=== PATIENT | female | born 1945 | race Caucasian/White ===

== ENCOUNTER → 2016-08-09 | Day surgery (SDC) | payer MEDICARE, OTHER ==
[~2016-08-09] VITALS: Ht 149.9 cm; Wt 57.6 kg
[~2016-08-09] MED LIST: ACETAMINOPHEN 325 MG TAB PO PRN; ACETAMINOPHEN TAB 650MG DOSE (2X325MG) PO PRN; ACETYLCHOLINE OPHTH SOLN 1% 2ML As Ordered ONE; AcetaZOLAMIDE 500 MG ER CAP PO ONE; BALANCED SALT IRRIGATION SOLUTION 500ML BAG (FOR OR EYE MACHINE) As Ordered ONE; CEFUROXIME 1MG/0.1ML INTRACAMERAL INJ As Ordered ONE; CYCLOPENTOLATE 2% OPHTH SOLN As Ordered ONE; CYCLOPENTOLATE 2% OPHTH SOLN OS ONE; D5W/0.2% SODIUM CHLORIDE 1,000 ML IV SCH; D5W/0.45% SODIUM CHLORIDE 1,000 ML IV SCH; GLIP2.5T6 PO; HEALON DUET (HEALON 10MG/ML 0.55ML & HEALON ENDOCOAT 30MG/ML 0.85ML) As Ordered ONE; KETOROLAC 0.5% OPHTH SOLN OS ONE; LIDOCAINE 1% SDV 5 ML VIAL As Ordered ONE; LIDOCAINE 4% INJ 5 ML AMP OU ONE; METF500T PO; MIDAZOLAM INJ 2 MG/2 ML VIAL (J2250) As Ordered ONE; OFLOXACIN 0.3 % (OCUFLOX) OPTH SOL 5ML As Ordered ONE; OFLOXACIN 0.3 % (OCUFLOX) OPTH SOL 5ML OS ONE; ONDANSETRON 4MG/2ML VIAL (J2405) IV PRN; PHENYLEPHRINE 2.5% OPHTH SOL 2ML As Ordered ONE; PHENYLEPHRINE 2.5% OPHTH SOL 2ML OS ONE; POVIDONE-IODINE 5% OPHTH PREP SOL 30ML As Ordered ONE; PROPARACAINE 0.5% OPHTH SOL 15ML OS PRN; TRIMETHOBENZAMIDE 300 MG CAP PO PRN; TROPICAMIDE 1% OPHTH SOLN 2 ML As Ordered ONE; TROPICAMIDE 1% OPHTH SOLN 2 ML OS ONE; fentaNYL 100 MCG/2 ML INJECTION (J3010) As Ordered ONE
[2016-08-09 09:00] VITALS: BP 181/75
--- NOTE | 2016-08-09 21:57 | RO ---
DATE OF PROCEDURE: 07/12/2016 PREPROCEDURE DIAGNOSIS: Nuclear cataract left eye. POSTPROCEDURE DIAGNOSIS: Nuclear cataract left eye. PROCEDURE: Phacoemulsification and posterior chamber intraocular lens implantation. The lens used was AU00T0 21.0 diopter. SURGEON: Kenisha Gaspar MD PORTAL ARCHITECT: ANESTHESIA: Topical with sedation. DESCRIPTION OF PROCEDURE: The patient was prepped and draped in the usual fashion. A lid speculum was placed between the lids. The eye was fixated. A stab incision was made to the anterior chamber, and 1% non-preserved lidocaine was instilled. Then, viscoelastic was instilled. The eye was re-fixated. A 2.75 mm sapphire keratome was used to make a clear corneal temporal limbal incision. Capsulorrhexis was begun with a 30-gauge bent needle and then carried out in a circular fashion with capsulorrhexis forceps. The lens was hydrodissected, and then the phacoemulsification unit was used to make a groove in the nucleus in two meridians. The nucleus was then cracked into four quadrants. Each quadrant was removed with the phacoemulsification unit. Any remaining cortex was removed with the irrigation and aspiration (I and A) unit. Capsular bag was refilled with viscoelastic. A posterior chamber intraocular lens was placed in the capsular bag without difficulty. Any remaining viscoelastic was removed with the I and A unit. The wound was hydrated, and Miochol and cefuroxime were instilled into the anterior chamber. The patient tolerated the procedure well and went to the recovery room in stable condition.
== END | disposition home or self-care (01) ==
LOC: M SDC 06:06
PROVIDERS: ATTEND Ophthalmology
DX: H25.12 Age-related nuclear cataract, left eye (principal); E11.9 Type 2 diabetes mellitus without complications; M19.90 Unspecified osteoarthritis, unspecified site; Z79.899 Other long term (current) drug therapy; Z79.84 Long term (current) use of oral hypoglycemic drugs
CPT/HCPCS: 66984; J2250; J3010; V2632

== ENCOUNTER → 2016-08-16 | Day surgery (SDC) | payer MEDICARE, OTHER ==
[~2016-08-16] VITALS: Ht 149.9 cm; Wt 58.0 kg
[~2016-08-16] MED LIST changes: -ACETAMINOPHEN TAB 650MG DOSE (2X325MG) PO PRN; -CYCLOPENTOLATE 2% OPHTH SOLN As Ordered ONE; +CYCLOPENTOLATE 2% OPHTH SOLN OD ONE; -CYCLOPENTOLATE 2% OPHTH SOLN OS ONE; -D5W/0.2% SODIUM CHLORIDE 1,000 ML IV SCH; +D5W/0.2% SODIUM CHLORIDE 250 ML IV SCH; -D5W/0.45% SODIUM CHLORIDE 1,000 ML IV SCH; +KETOROLAC 0.5% OPHTH SOLN OD ONE; -KETOROLAC 0.5% OPHTH SOLN OS ONE; -OFLOXACIN 0.3 % (OCUFLOX) OPTH SOL 5ML As Ordered ONE; +OFLOXACIN 0.3 % (OCUFLOX) OPTH SOL 5ML OD ONE; -OFLOXACIN 0.3 % (OCUFLOX) OPTH SOL 5ML OS ONE; -ONDANSETRON 4MG/2ML VIAL (J2405) IV PRN; -PHENYLEPHRINE 2.5% OPHTH SOL 2ML As Ordered ONE; +PHENYLEPHRINE 2.5% OPHTH SOL 2ML OD ONE; -PHENYLEPHRINE 2.5% OPHTH SOL 2ML OS ONE; +PROPARACAINE 0.5% OPHTH SOL 15ML OD PRN; -PROPARACAINE 0.5% OPHTH SOL 15ML OS PRN; -TROPICAMIDE 1% OPHTH SOLN 2 ML As Ordered ONE; +TROPICAMIDE 1% OPHTH SOLN 2 ML OD ONE; -TROPICAMIDE 1% OPHTH SOLN 2 ML OS ONE
[2016-08-16 08:40] VITALS: BP 171/82
--- NOTE | 2016-08-16 09:37 | RO ---
DATE OF PROCEDURE: 08/16/2016 PREPROCEDURE DIAGNOSIS: Age related nuclear cataract right eye. POSTPROCEDURE DIAGNOSIS: Age related nuclear cataract right eye. PROCEDURE: Phacoemulsification and posterior chamber intraocular lens implantation. The lens used was AU00T0, 21.0 diopter. SURGEON: Kenisha Gaspar MD ORDER SELECTOR: ANESTHESIA: Topical with sedation. DESCRIPTION OF PROCEDURE: The patient was prepped and draped in the usual fashion. A lid speculum was placed between the lids. The eye was fixated. A stab incision was made to the anterior chamber, and 1% non-preserved lidocaine was instilled. Then, viscoelastic was instilled. The eye was re-fixated. A 2.75 mm sapphire keratome was used to make a clear corneal temporal limbal incision. Capsulorrhexis was begun with a 30-gauge bent needle and then carried out in a circular fashion with capsulorrhexis forceps. The lens was hydrodissected, and then the phacoemulsification unit was used to make a groove in the nucleus in two meridians. The nucleus was then cracked into four quadrants. Each quadrant was removed with the phacoemulsification unit. Any remaining cortex was removed with the irrigation and aspiration (I and A) unit. Capsular bag was refilled with viscoelastic. A posterior chamber intraocular lens was placed in the capsular bag without difficulty. Any remaining viscoelastic was removed with the I and A unit. The wound was hydrated, and Miochol and cefuroxime were instilled into the anterior chamber. The patient tolerated the procedure well and went to the recovery room in stable condition.
== END | disposition home or self-care (01) ==
LOC: M SDC 06:08 → EDUNIT# 11:00
PROVIDERS: ATTEND Ophthalmology
DX: H25.11 Age-related nuclear cataract, right eye (principal); E11.9 Type 2 diabetes mellitus without complications; M54.9 Dorsalgia, unspecified; Z79.899 Other long term (current) drug therapy; Z79.84 Long term (current) use of oral hypoglycemic drugs
CPT/HCPCS: 66984; J2250; J3010; V2632

== ENCOUNTER 2019-12-06 14:39 | Inpatient (IN) | payer MEDICARE, OTHER ==
[~2019-12-06] VITALS: Ht 149.9 cm; Wt 65.1 kg
[~2019-12-06 14:39] MED LIST changes: -ACETAMINOPHEN 325 MG TAB PO PRN; -ACETYLCHOLINE OPHTH SOLN 1% 2ML As Ordered ONE; -AcetaZOLAMIDE 500 MG ER CAP PO ONE; -BALANCED SALT IRRIGATION SOLUTION 500ML BAG (FOR OR EYE MACHINE) As Ordered ONE; -CEFUROXIME 1MG/0.1ML INTRACAMERAL INJ As Ordered ONE; -CYCLOPENTOLATE 2% OPHTH SOLN OD ONE; -D5W/0.2% SODIUM CHLORIDE 250 ML IV SCH; -HEALON DUET (HEALON 10MG/ML 0.55ML & HEALON ENDOCOAT 30MG/ML 0.85ML) As Ordered ONE; -KETOROLAC 0.5% OPHTH SOLN OD ONE; -LIDOCAINE 1% SDV 5 ML VIAL As Ordered ONE; -LIDOCAINE 4% INJ 5 ML AMP OU ONE; -METF500T PO; +METF500T13 PO; -MIDAZOLAM INJ 2 MG/2 ML VIAL (J2250) As Ordered ONE; -OFLOXACIN 0.3 % (OCUFLOX) OPTH SOL 5ML OD ONE; -PHENYLEPHRINE 2.5% OPHTH SOL 2ML OD ONE; -POVIDONE-IODINE 5% OPHTH PREP SOL 30ML As Ordered ONE; -PROPARACAINE 0.5% OPHTH SOL 15ML OD PRN; -TRIMETHOBENZAMIDE 300 MG CAP PO PRN; -TROPICAMIDE 1% OPHTH SOLN 2 ML OD ONE; -fentaNYL 100 MCG/2 ML INJECTION (J3010) As Ordered ONE
[2019-12-06 15:45] VITALS: BP 140/68
[2019-12-06] MEDS ORDERED: GLUCOSE 4GM CHEW TABLET PO PRN (15:45)
[2019-12-06] MEDS ORDERED: DEXTROSE 50% 50 ML SYRINGE IV PRN (15:45)
[2019-12-06] MEDS ORDERED: GLUCAGON INJ 1MG VIAL SC PRN (15:45)
[2019-12-06] MEDS ORDERED: SLF 3 ML SYR IV PRN (16:00)
[2019-12-06] MEDS ORDERED: KCL 10MEQ IN D5/0.45NS 1000ML 1,000 ML IV SCH (16:15)
[2019-12-06] MEDS ORDERED: ZOFR4TAB16 PO (16:24)
[2019-12-06] MEDS ORDERED: LANTINJ4 SC (16:24)
[2019-12-06] MEDS ORDERED: D 50CAP2 PO (16:25)
[2019-12-06 16:41] LABS: HEMOGLOBIN 12.1 g/dl (12.0-15.5); MEAN CORPUSCULAR HEMOGLOBIN 27.9 pg (27.0-33.0); MEAN CORPUSCULAR VOLUME 89.9 fl (80.0-96.0); PLATELET COUNT, AUTOMATED 613 10^3/uL (150-450); RED BLOOD COUNT 4.34 10^6/uL (4.00-5.40); WHITE BLOOD COUNT 18.6 10^3/uL (4.0-10.0)
[2019-12-06 17:15] LABS: ALBUMIN 2.5 GM/DL (3.2-5.2); BILIRUBIN,TOTAL 0.6 MG/DL (0.2-1.0); CALCIUM LEVEL 8.9 MG/DL (8.8-10.2); CREATININE FOR GFR 1.29 MG/DL (0.55-1.30); GLOMERULAR FILTRATION RATE 42.8 (>39); POTASSIUM SERUM 5.8 MEQ/L (3.5-5.1); TOTAL PROTEIN 6.4 GM/DL (6.4-8.2)
--- NOTE | 2019-12-06 17:15 | HPE ---
DATE OF ADMISSION: 12/06/2019 CHIEF COMPLAINT: Nausea, vomiting, diarrhea, abdominal distension. HISTORY OF PRESENT ILLNESS: A 74-year-old female with history of diabetes, osteoarthritis, was in her usual state of health until about a month ago when she was started on Trulicity by her primary care provider. The patient started developing increasing pain in her stomach, described as sharp, worse when she tries to eat something, and had taken herself off of the Trulicity to see if that would make any difference. The patient continues to have increasing abdominal pain diffusely without any relief, constant with a six-pound weight loss. She has had decrease in appetite, anorexia, and increasing abdominal distension without lower extremity edema. She went to the emergency room at the [facility] last Sunday and was diagnosed with ovarian cancer on CT abdomen and pelvis and was sent to [facility] at the [facility]. The patient stayed at [facility] from Sunday to Sunday afternoon. She was told that the biopsy needed to be done as outpatient and she was subsequently discharged. She says that she felt better after IV fluids were started and she was put on antiemetics but since returning home without any IV fluid, she had intractable nausea, vomiting, and diarrhea. She describes the diarrhea as yellow dark stool, voluminous in amount, about 3-4 times during the day and three times at night. Vomiting usually occurs when she attempts to eat something and initially frothy and eventually turns into yellowish emesis. Despite the six-pound weight loss, the patient has not had any other complaints. She has been unable to sleep, has been increasingly tired. Today, she has had worsening abdominal pain, intractable nausea, vomiting and diarrhea prompting her to come to the emergency room at [facility]. She was told have an interventional radiology (IR) procedure scheduled for Sunday for biopsy, and since this was her second time over in the [facility] Emergency Department (ED), she was subsequently transferred to [facility] to expedite her biopsy. PAST MEDICAL HISTORY: 1. Diabetes. 2. Osteoarthritis. 3. Recent diagnosis of ovarian cancer by imaging at [facility] and seen at [facility]. PAST SURGICAL HISTORY: Tubal ligation, cholecystectomy. HOME MEDICATIONS: - Lantus insulin 8 units at bedtime - Zofran 4 mg every six hours as needed - vitamin D 125 mcg daily ALLERGIES: No known drug allergies. SOCIAL HISTORY: The patient never smoked cigarettes. She still works cleaning churches. She lives with her and her son. She has an occasional glass of wine with a friend. Healthcare proxy is her . She is a full code. 's name is Donavon, phone number [phone]. FAMILY HISTORY: Her father in his 40s with heart problems. Mother in her 80s at the age of 82 with heart problems. She was a heavy smoker. REVIEW OF SYSTEMS: Per history of present illness (HPI), 12-point system otherwise negative. PHYSICAL EXAMINATION: VITALS: 97.5 97 18 140/68 98%RA GENERAL: Awake, alert, and oriented times three, answering questions appropriately. Anicteric. No jaundice. No pallor. Dry mucous membranes. No jugular venous distention (JVD), thyromegaly, or cervical lymphadenopathy. Lungs are clear to auscultation. No wheezing, rales, or rhonchi. Air entry is equal bilaterally. HEART: S1, S2, sinus rhythm. Abdomen is distended. Positive bowel sounds times four quadrants. The patient has positive fluid wave. No rebound or guarding. No abdominal bruit. EXTREMITIES: No clubbing, cyanosis, or pitting edema. Laboratory data:pending Transvaginal US: 1. Bilateral adnexal masses, likely ovarian in origin. 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 2. Fluid within the endometrial cavity of the uterus which has a slightly heterogeneous myometrium. 3. Pelvic ascites. CT ABD/PELVIS 1. Large heterogeneously enhancing pelvic mass suspicious for ovarian origin and highly concerning for ovarian cancer. 2. Cystic mass within the left adnexa, likely left ovarian origin. 3. Peritoneal carcinomatosis with extensive omental caking. 4. Large volume of abdominal and pelvic ascites. ASSESSMENT AND PLAN: This is a 74-year-old female with history of type 2 diabetes, osteoarthritis, presented a month ago to [facility] due to increasing abdominal distension, found to have questionable ovarian mass, sent over to [facility] where she stayed for three days with no workup. She was then sent to have an outpatient biopsy done at [facility] scheduled for this coming Sunday12/09/2019. She then represented to the emergency room after hospital discharge over at [facility] with intractable nausea, vomiting and diarrhea, increasing abdominal pain, transferred subsequently from [facility] Emergency Room (ER) to [facility] to expedite her diagnosis. IMPRESSION: 1. Pelvic mass with malignant ascites, most likely ovarian in origin.The patient was seen at [facility] in [place] but was told that her biopsy had to be done as outpatient. This will be done at [facility] on Sunday. We will try to expedite this and order this for Sunday. At this time since we have no imaging studies, her CT abdomen and pelvis will be done here at [facility]. We will also check for tumor markers, CA 125, CA 19-9, CEA. At this time, the patient is nauseous and will be given antiemetics [id number] with Zofran IV every six hours, Phenergan if the Zofran is inadequate, and IV fluids D5 half-normal with 10 mEq of potassium at 75 mL per hour. us guided paracentesis for cytology. call radiology to reschedule her biopsy from Sunday to Sunday. 2. Type 2 diabetes. She may be resumed on home dose of Lantus insulin, sliding scale, and consistent-carbohydrate diet. Hypoglycemic protocol. 3. Hyperkalemia. on iv bicarb gtt.serial bmp. tele. 4. Metabolic acidosis / lactic acidosis. on iv bicarb gtt. serial bmp. check serial calcium while on bicarbonate iv gtt 5. Leukocytosis most likely reactive from malignancy. monitor for fever. no empiric abx. check ua with reflex gram stain and culture.blood culture. 6. DM2. consistent carbs diet, sliding scale. Deep vein thrombosis (DVT) prophylaxis with compression stockings for now. She is a full code. MTDD
[2019-12-06] MEDS: HumaLOG INSULIN (NovoLOG) PER UNIT SC SCH ×2 (17:16→20:34)
[2019-12-06] MEDS: ONDANSETRON 4MG/2ML VIAL IV SCH ×2 (17:39→23:26)
[2019-12-06] MEDS ORDERED: MORPHINE 4 MG/ML 1ML VIAL/SYRINGE (J2270) IV PRN (17:45)
[2019-12-06] MEDS ORDERED: SENOKOT S TAB PO PRN (17:45)
[2019-12-06] MEDS ORDERED: PERCOCET 5MG/325MG TAB PO PRN (17:45)
[2019-12-06] MEDS ORDERED: MOM 30ML SUSPENSION UDC PO PRN (17:45)
[2019-12-06] MEDS ORDERED: ISOVUE-370 76% 100ML VIAL As Ordered ONE (18:03)
[2019-12-06 18:25] LABS: MAGNESIUM LEVEL 1.9 MG/DL (1.8-2.4)
[2019-12-06] MEDS: SODIUM BICARBONATE 150 MEQ in STERILE WATER LITER BAG 1,000 ML IV SCH (18:37)
--- NOTE | 2019-12-06 19:02 | REPVR ---
PROCEDURE INFORMATION: Exam: CT Abdomen And Pelvis With Contrast Exam date and time: 12/06/2019 4:05 PM Age: 74 years old Clinical indication: Bloating; Additional info: Iv contrast no po contrast. Abd distension. Ovarian CA? TECHNIQUE: Imaging protocol: Computed tomography of the abdomen and pelvis with intravenous contrast. Radiation optimization: All CT scans at this facility use at least one of these dose optimization techniques: automated exposure control; mA and/or kV adjustment per patient size (includes targeted exams where dose is matched to clinical indication); or iterative reconstruction. Contrast material: ISOVUE 370; Contrast volume: 100 ml; Contrast route: INTRAVENOUS (IV); COMPARISON: CT ABD/PELVIS W/O CONTRAST - OUTSIDE PRIOR 11/30/2019 12:37 PM FINDINGS: Lungs: Atelectasis within the lingula and left lower lobe is new. Pleural space: Small left pleural effusion is new. Liver: Unremarkable. No mass. Gallbladder and bile ducts: Status post cholecystectomy. No bile duct dilatation. Pancreas: Atrophied pancreas containing coarse calcifications consistent with chronic pancreatitis, unchanged. Spleen: Calcified granulomas within the spleen. Adrenals: Normal. No mass. Kidneys and ureters: Unremarkable. No stones. No hydronephrosis. Stomach and bowel: Small gastric hiatus hernia. Diverticulosis of the descending and sigmoid colon. No diverticulitis. No bowel obstruction. Appendix: No evidence of appendicitis. Intraperitoneal space: Heterogeneously enhancing mixed density mass measuring approximately 11 cm x 8 cm x 9 cm within the right lower pelvis. This mass abuts and distorts the uterus which is heterogeneous in appearance. There is a left adnexal cystic mass measuring 6 cm by 4 cm by 5 cm. These findings are unchanged when compared to the prior exam. Large volume of abdominal and pelvic ascites, unchanged. Omental caking. Enhancing peritoneal implants more prominent in the upper abdomen. Vasculature: Unremarkable. No abdominal aortic aneurysm. Lymph nodes: Unremarkable. No enlarged lymph nodes. Bladder: Unremarkable as visualized. Reproductive: See "Intraperitoneal space" finding. Bones/joints: Degenerative spondylosis of the lower thoracic and lumbar spine. Degenerative arthrosis of both hip joints. No fracture or suspicious bone lesion. Soft tissues: Small anterior abdominal wall hernias, unchanged. IMPRESSION: 1. Large heterogeneously enhancing pelvic mass suspicious for ovarian origin and highly concerning for ovarian cancer. 2. Cystic mass within the left adnexa, likely left ovarian origin. 3. Peritoneal carcinomatosis with extensive omental caking. 4. Large volume of abdominal and pelvic ascites. Electronically signed by: Cb Downey On 12/06/2019 19:02:26 PM
[2019-12-06 20:00] VITALS: BP 155/77
[2019-12-06] MEDS: LEVEMIR (INSULIN DETEMIR) 1 UNITS/0.01ML SC SCH (20:34)
[2019-12-06] MEDS: SLF 3 ML SYR IV SCH (20:34)
--- NOTE | 2019-12-06 20:45 | REPVR ---
PROCEDURE INFORMATION: Exam: US Pelvis Complete, Transabdominal and US Pelvis, Transvaginal Exam date and time: 12/06/2019 8:29 PM Age: 74 years old Clinical indication: Abnormal findings; Abnormal imaging test; Additional info: Uterine mass TECHNIQUE: Imaging protocol: Real-time transabdominal and transvaginal pelvic ultrasound (complete) with image documentation. Transvaginal imaging was used for better evaluation of the endometrium and adnexa. COMPARISON: CT ABD PELVIS WITH CONTRAST 12/06/2019 6:10 PM FINDINGS: Uterus/cervix: The uterus measures 7.6 cm x 4.3 cm by 3.5 cm. There is fluid within the endometrial canal. The myometrium is slightly heterogeneous and abuts the right adnexal mass. Right adnexa: Solid heterogeneous mass of mixed echogenicity measuring 9.0 cm x 6.5 cm by 9.7 cm within the right lower quadrant/right adnexa, likely ovarian origin. Left adnexa: There is a complex cystic mass measuring 9.3 cm by 5.1 cm x 6.1 cm in the left adnexa, likely ovarian origin. Free fluid: Pelvic ascites is noted. Bladder: Incompletely distended and suboptimally visualized.. IMPRESSION: 1. Bilateral adnexal masses, likely ovarian in origin. 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 2. Fluid within the endometrial cavity of the uterus which has a slightly heterogeneous myometrium. 3. Pelvic ascites. Electronically signed by: Cb Downey On 12/06/2019 20:44:47 PM
[2019-12-07] VITALS: BP 124/60
[2019-12-07 00:51] LABS: CALCIUM LEVEL 8.2 MG/DL (8.8-10.2); CREATININE FOR GFR 1.2 MG/DL (0.55-1.30); GLOMERULAR FILTRATION RATE 46.5 (>39); POTASSIUM SERUM 5.2 MEQ/L (3.5-5.1)
[2019-12-07 04:00] VITALS: BP 99/58
[2019-12-07] MEDS: ONDANSETRON 4MG/2ML VIAL IV SCH ×4 (04:21→23:25)
[2019-12-07] MEDS: SLF 3 ML SYR IV SCH ×3 (05:38→22:05)
[2019-12-07 06:05] LABS: HEMOGLOBIN 10.6 g/dl (12.0-15.5); MEAN CORPUSCULAR HEMOGLOBIN 28.3 pg (27.0-33.0); MEAN CORPUSCULAR HGB CONC 32.1 g/dl (32.0-36.5); PLATELET COUNT, AUTOMATED 544 10^3/uL (150-450); RED BLOOD COUNT 3.75 10^6/uL (4.00-5.40); WHITE BLOOD COUNT 16.1 10^3/uL (4.0-10.0)
[2019-12-07 06:09] LABS: INR 1.3; PROTHROMBIN TIME 15.9 SECONDS (11.8-14.0)
[2019-12-07 06:10] LABS: PARTIAL THROMBOPLASTIN TIME 43.9 SECONDS (25.0-38.4)
[2019-12-07] MEDS: SODIUM BICARBONATE 150 MEQ in STERILE WATER LITER BAG 1,000 ML IV SCH (06:41)
[2019-12-07 06:42] LABS: CREATININE FOR GFR 1.17 MG/DL (0.55-1.30); GLOMERULAR FILTRATION RATE 47.9 (>39); POTASSIUM SERUM 5.1 MEQ/L (3.5-5.1); THYROID STIMULATING HORMONE 2.05 uIU/ML (0.358-3.740)
[2019-12-07] MEDS: HumaLOG INSULIN (NovoLOG) PER UNIT SC SCH ×4 (06:59→20:12)
[2019-12-07 08:00] VITALS: BP 136/71
[2019-12-07 08:47] LABS: HEMOGLOBIN A1c 7.8 %
[2019-12-07] MEDS: NS 1,000 ML IV SCH ×2 (09:00→20:35)
[2019-12-07] MEDS ORDERED: PREVNAR 13 VACCINE SYRINGE (CPT CODE:90670) IM ONE (09:00)
--- NOTE | 2019-12-07 10:51 | REP ---
CHEST PA AND LATERAL: 12/06/2019 COMPARISON: Abdomen CT showing lower chest, 11/30/2019 at [facility]. CLINICAL HISTORY: Abdominal pain, nausea and vomiting. FINDINGS: PA chest: Appears to be a small left pleural effusion developing. Right lung remains clear. I see no dense consolidation. The heart is not grossly enlarged. The aorta and airway intact. No widening of the mediastinum. Bony thorax shows no focal lesion. There is no free air under the diaphragm. IMPRESSION: 1. Small left pleural effusion evident, which is not seen on the CT abdomen lung windows from 11/30/2019. That CT study, however, shows ascites. 2. No dense consolidation in the lung parenchyma. The heart and mediastinal contours are normal. Bony thorax unremarkable. Electronically Signed by Petey Jacobs MD 12/07/2019 06:38 P
--- NOTE | 2019-12-07 11:32 | IPNPDOC ---
Text Note Date of Service The patient was seen on 12/07/19. NOTE Subjective: She states she is feeling better today. Denies chest pain/shortness of breath. No abdominal pain. No nausea. Would like to start clears. PHYSICAL EXAMINATION: GENERAL: Awake, alert, and oriented times three Anicteric. No jaundice. No pallor. Dry mucous membranes. No jugular venous distention (JVD). Lungs are clear to auscultation. No wheezing, rales, or rhonchi. Air entry is equal bilaterally. HEART: S1, S2, sinus rhythm. Abdomen is distended. Positive bowel sounds times four quadrants. The patient has positive fluid wave. No rebound or guarding. No abdominal bruit. EXTREMITIES: No clubbing, cyanosis, or pitting edema. Laboratory data:pending Transvaginal US: 1. Bilateral adnexal masses, likely ovarian in origin. 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 2. Fluid within the endometrial cavity of the uterus which has a slightly heterogeneous myometrium. 3. Pelvic ascites. CT ABD/PELVIS 1. Large heterogeneously enhancing pelvic mass suspicious for ovarian origin and highly concerning for ovarian cancer. 2. Cystic mass within the left adnexa, likely left ovarian origin. 3. Peritoneal carcinomatosis with extensive omental caking. 4. Large volume of abdominal and pelvic ascites. ASSESSMENT AND PLAN: This is a 74-year-old female with history of type 2 diabetes, osteoarthritis, presented a month ago to [facility] due to increasing abdominal distension, found to have questionable ovarian mass, sent over to [facility] where she stayed for three days with no workup. She was then sent to have an outpatient biopsy done at [facility] scheduled for this coming Sunday12/09/2019. She then represented to the emergency room after hospital discharge over at [facility] with intractable nausea, vomiting and diarrhea, increasing abdominal pain, transferred subsequently from [facility] Emergency Room (ER) to [facility] to expedite her diagnosis. IMPRESSION: 1. Pelvic mass with malignant ascites, most likely ovarian in origin.The vasu ceron seen at [facility] in [place] but was told that her biopsy had to be done as outpatient. This was planned be done at [facility] on [address]. - Please call IR in the morning to try to expedite it for tomorrow. - -Follow-up CA 125, CA 19-9, CEA. - Oncology consult after pathology results. 2.Nausea/vomiting - Resolved - DC IV fluids - Advance diet as tolerated 3. Type 2 diabetes. She may be resumed on home dose of Lantus insulin, sliding scale, and consistent-carbohydrate diet. Hypoglycemic protocol. 4. Hyperkalemia. - Status post iv bicarb gtt - Improved 5. Metabolic acidosis / lactic acidosis. on iv bicarb gtt. serial bmp. - Improved - DC bicarbonate drip 6. Leukocytosis most likely reactive from malignancy. monitor for fever. no empiric abx. check ua with reflex gram stain and culture.blood culture. 7. DM2. consistent carbs diet, sliding scale. Deep vein thrombosis (DVT) prophylaxis with compression stockings for now. VS,Fishbone, I+O VS, Fishbone, I+O Laboratory Tests 12/06/19 16:20 12/07/19 00:07 12/07/19 05:45 Vital Signs Date Time Temp Pulse Resp B/P (MAP) Pulse Ox O2 Delivery O2 Flow Rate FiO2 12/07/19 08:00 97.6 85 18 136/71 (92) 100 Room Air I&O- Last 24 Hours up to 6 AM 12/07/19 06:00 Intake Total 0 ml Output Total 400 ml Balance -400 ml NEETA KARIMI MD Dec 07, 2019 11:32
[2019-12-07 12:00] VITALS: BP 117/62
[2019-12-07 16:00] VITALS: BP 142/78
[2019-12-07 20:00] VITALS: BP 118/66
[2019-12-07] MEDS ORDERED: LEVEMIR (INSULIN DETEMIR) 1 UNITS/0.01ML SC ONE (20:30)
[2019-12-08 04:00] VITALS: BP 139/76
[2019-12-08] MEDS: SLF 3 ML SYR IV SCH ×3 (04:52→22:09)
[2019-12-08] MEDS: ONDANSETRON 4MG/2ML VIAL IV SCH ×4 (04:52→22:42)
[2019-12-08 05:51] LABS: HEMOGLOBIN 10.7 g/dl (12.0-15.5); MEAN CORPUSCULAR HGB CONC 31.5 g/dl (32.0-36.5); PLATELET COUNT, AUTOMATED 519 10^3/uL (150-450); RED BLOOD COUNT 3.82 10^6/uL (4.00-5.40); WHITE BLOOD COUNT 13.3 10^3/uL (4.0-10.0)
[2019-12-08 06:08] LABS: CREATININE FOR GFR 1.04 MG/DL (0.55-1.30); GLOMERULAR FILTRATION RATE 54.8 (>39); POTASSIUM SERUM 4.4 MEQ/L (3.5-5.1)
[2019-12-08] MEDS: HumaLOG INSULIN (NovoLOG) PER UNIT SC SCH ×4 (07:30→21:00)
[2019-12-08 08:00] VITALS: BP 132/61
[2019-12-08] MEDS ORDERED: MOM30SS2 PO (12:26)
[2019-12-08] MEDS ORDERED: SENN-52 PO (12:26)
[2019-12-08] MEDS ORDERED: PERCOCET PO (12:26)
[2019-12-08] MEDS ORDERED: SODIUM BICARBONATE 8.4% INJ 50MEQ 50 ML VIAL As Ordered ONE (14:53)
[2019-12-08 16:11] LABS: APPEARANCE, BODY FLUID CLOUDY (CLEAR); PERITONEAL FL COLOR YELLOW (COLORLESS); SOURCE, BODY FLUID PERITONEAL; SPEC. GRAVITY BODY FLUIDS 1.026 (NOT ESTABLISHED)
[2019-12-08 16:30] VITALS: BP 154/73
[2019-12-08] MEDS ORDERED: ISOVUE-370 76% 100ML VIAL As Ordered ONE (16:42)
[2019-12-08 17:10] LABS: SOURCE, BODY FLUID ALBUMIN PERITONEAL; SOURCE, BODY FLUID GLUCOSE PERITONEAL; SOURCE, BODY FLUID TOT PROTEIN PERITONEAL; TOTAL PROTEIN, BODY FLUID 4.3 G/DL (NOT ESTABLISHED)
--- NOTE | 2019-12-08 17:21 | IPNPDOC ---
Text Note Date of Service The patient was seen on 12/08/19. NOTE Subjective: No any acute events overnight. Patient stated that she has been h aving only mild nausea, no abdominal pain PHYSICAL EXAMINATION: GENERAL: Awake, alert, and oriented times three Anicteric. No jaundice. No pallor. Dry mucous membranes. No jugular venous distention (JVD). Lungs are clear to auscultation. No wheezing, rales, or rhonchi. Air entry is equal bilaterally. HEART: S1, S2, sinus rhythm. Abdomen is distended. Positive bowel sounds times four quadrants. The patient has positive fluid wave. No rebound or guarding. No abdominal bruit. EXTREMITIES: No clubbing, cyanosis, or pitting edema. ASSESSMENT AND PLAN: This is a 74-year-old female with history of type 2 diabetes, osteoarthritis, presented to the hospital with increasing abdominal distension. Patient was found to have Large heterogeneously enhancing pelvic mass suspicious for ovarian origin and highly concerning for ovarian cancer with Peritoneal carcinomatosis with extensive omental caking 1. Pelvic mass with malignant ascites, most likely ovarian in origin Paracentesis was done today CA 125, CA 19-9, CEA pending Appreciate/agree with oncologist consult CT chest with contrast ordered Nausea/vomiting - Resolved Zofran when necessary Type 2 diabetes. Diabetes diet, insulin sliding scale Detemir Hyperkalemia. Resolved Metabolic acidosis / lactic acidosis Patient received bicarbonate infusion Resolved Leukocytosis Await peritoneal fluid analysis Leukocytosis improved today. Most likely associated with underlying malignancy I will hold antibiotics for now. Patient does not have abdominal pain, no fever, no chills VS,Sridevie, I+O VS, Fishbone, I+O Laboratory Tests 12/08/19 05:16 Vital Signs Date Time Temp Pulse Resp B/P (MAP) Pulse Ox O2 Delivery O2 Flow Rate FiO2 12/08/19 15:42 83 16 99 Room Air 12/08/19 14:50 97.1 12/08/19 08:00 132/61 (84) I&O- Last 24 Hours up to 6 AM 12/08/19 05:59 Intake Total 0 ml Output Total 200 ml Balance -200 ml CAITLIN PHILLIPS DO Dec 08, 2019 17:21
--- NOTE | 2019-12-08 18:26 | REPVR ---
PROCEDURE INFORMATION: Exam: CT Chest With Contrast Exam date and time: 12/08/2019 5:33 PM Age: 74 years old Clinical indication: Condition or disease; Other: Mets TECHNIQUE: Imaging protocol: Computed tomography of the chest with intravenous contrast. 3D rendering: MIP and/or 3D reconstructed images were created by the technologist. Radiation optimization: All CT scans at this facility use at least one of these dose optimization techniques: automated exposure control; mA and/or kV adjustment per patient size (includes targeted exams where dose is matched to clinical indication); or iterative reconstruction. Contrast material: ISOVUE 370; Contrast volume: 75 ml; Contrast route: INTRAVENOUS (IV); COMPARISON: CR Chest, 2 view PA, Lat 12/06/2019 4:27 PM FINDINGS: Lungs: Compressive atelectasis left lung base. 2 mm nodule left lower lobe, 1-2 mm nodule right upper lobe both likely postinflammatory. No follow-up suggested (lung rads category 2). Pleural space: Small left pleural effusion. Heart: There is mild atherosclerotic calcification of the coronary arteries. Mediastinal space: A small hiatal hernia is present. Aorta: The aorta demonstrates mild atherosclerotic calcification. There is mild fusiform dilatation of the ascending thoracic aorta which measures 3.6 cm. maximally. There is no dissection or saccular component. Lymph nodes: Small mediastinal lymph nodes likely postinflammatory. Liver: Examination of the liver demonstrates a lobular surface contour, and enlargement of the left and caudate lobes, findings consistent with cirrhosis. There is a diffuse decrease in hepatic parenchymal density, consistent with steatosis. Gallbladder and bile ducts: There has been a cholecystectomy. Pancreas: There is diffuse pancreatic atrophy. Intraperitoneal space: There is a small amount of free intraperitoneal fluid present. Bones/joints: The spine demonstrates mild degenerative changes. Soft tissues: Unremarkable. IMPRESSION: 1. Small left pleural effusion. 2. There is mild fusiform dilatation of the ascending thoracic aorta which measures 3.6 cm. maximally. There is no dissection or saccular component. 3. There is a small amount of free intraperitoneal fluid present. 4. Examination of the liver demonstrates a lobular surface contour, and enlargement of the left and caudate lobes, findings consistent with cirrhosis. 5. A small hiatal hernia is present. 6. There is a diffuse decrease in hepatic parenchymal density, consistent with steatosis. 7. There has been a cholecystectomy. 8. There is diffuse pancreatic atrophy. Electronically signed by: Wild Jessica On 12/08/2019 18:26:36 PM
[2019-12-08 20:00] VITALS: BP 125/60
[2019-12-08] MEDS: LEVEMIR (INSULIN DETEMIR) 1 UNITS/0.01ML SC SCH (21:00)
[2019-12-09 04:00] VITALS: BP 121/67
[2019-12-09] MEDS: ONDANSETRON 4MG/2ML VIAL IV SCH ×2 (04:20→11:44)
[2019-12-09] MEDS: SLF 3 ML SYR IV SCH ×2 (04:20→13:30)
[2019-12-09 06:17] LABS: HEMATOCRIT 34.7 % (36.0-47.0); MEAN CORPUSCULAR HEMOGLOBIN 28.3 pg (27.0-33.0); MEAN CORPUSCULAR HGB CONC 31.7 g/dl (32.0-36.5); MEAN CORPUSCULAR VOLUME 89.2 fl (80.0-96.0); PLATELET COUNT, AUTOMATED 497 10^3/uL (150-450); RED BLOOD COUNT 3.89 10^6/uL (4.00-5.40)
[2019-12-09 06:33] LABS: BLOOD UREA NITROGEN 22 MG/DL (7-18); CALCIUM LEVEL 8.2 MG/DL (8.8-10.2); CARBON DIOXIDE LEVEL 23 MEQ/L (21-32); CHLORIDE LEVEL 106 MEQ/L (98-107); CREATININE FOR GFR 0.95 MG/DL (0.55-1.30); GLOMERULAR FILTRATION RATE > 60.0 (>39); GLUCOSE, FASTING 110 MG/DL (70-100); POTASSIUM SERUM 4.9 MEQ/L (3.5-5.1); SODIUM LEVEL 141 MEQ/L (136-145)
[2019-12-09 08:00] VITALS: BP 117/57
--- NOTE | 2019-12-09 08:07 | CR ---
DATE OF CONSULTATION: 12/08/2019 REQUESTING PHYSICIAN: Dr. Tate Verdugo DIAGNOSIS: Clinical diagnosis of advanced ovarian carcinoma in a 74-year-old woman presenting with massive ascites, omental caking, status post paracentesis, fluid cytology pending. HISTORY OF PRESENT ILLNESS: Ms. 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 She is and lives with her and one son. She has a total of five children. She has type 2 diabetes and was recently started on Trulicity. In the last month or so she developed abdominal discomfort and nausea she attributed to the Trulicity. However, ten days ago symptoms worsened, accompanied by abdominal distension, and she presented to the [facility] ER. There, she was diagnosed on CT scan with ovarian cancer and sent to [facility]. She was told a biopsy was needed as an outpatient and was discharged after IV fluids and antiemetics. Two days ago on Sunday, she presented with recurrent abdominal distention and lower extremity edema. She presented again to the [place] ER December 05, and from there was transferred to [facility] to expedite biopsy. PAST MEDICAL HISTORY: 1. Type 2 diabetes. 2. Osteoarthritis. PAST SURGICAL HISTORY: 1. Tubal ligation. 2. Cholecystectomy. ALLERGIES: No known drug allergies. HOME MEDICATIONS: - Lantus insulin 8 units at night - Zofran 4 mg q.6 h p.r.n. - vitamin D FAMILY HISTORY: A brother was diagnosed with prostate cancer in his mid 60s, a second brother diagnosed with liver cancer in his 40s. Mother of old age, father of coronary disease. SOCIAL HISTORY: . Lives with her and son. Never smoker. Denies alcohol. 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 is [place] . REVIEW OF SYSTEMS: The patient denies fevers, chills, shortness of breath, cough; despite the HPI, she denied leg swelling; acknowledges abdominal discomfort much relieved now after recent paracentesis here. No arm swelling. No neck swelling or facial swelling. No headache or visual disturbance. No lumps or bumps. No skin rash. PHYSICAL EXAMINATION: Temperature 97.1, blood pressure 132/61, heart rate 83, respiratory rate 16, O2 sat 99% on room air. The patient is a very pleasant, normal weight appearing, older woman reclining in bed, makes good eye contact, good historian, appears comfortable. Respiratory: Clear lungs throughout the lung monroy. No wheezes, rales or rhonchi. Cardiac: S1, S2. Regular rate and rhythm. No murmur. No gallop. Abdomen is soft, mildly softly distended, some shifting dullness just barely appreciable to percussion, nontender. No palpable hepatosplenomegaly. No palpable mass. Extremities: No pitting. Trace pedal edema bilaterally. Lymph Nodes: No palpable submandibular, cervical, supraclavicular or axillary adenopathy bilaterally. LABS: From today, WBC 13.3, hemoglobin 10.7, hematocrit 34, platelets 517. Electrolytes and renal function are within normal limits. TSH normal on 12/07/2019. CA-125 reportedly pending, but I do not see it pending here. IMAGING STUDIES: Pelvic ultrasound on 12/06/2019 - Uterus measuring 7.6 x 4.3 x 3.5. Fluid within the endometrial canal. Myometrium slightly heterogeneous and abutting a right adnexal mass measuring 9 x 6.5 x 9.7 cm. In the left adnexa, complex cystic mass measuring 9.3 x 5.1 x 6.1 cm. Pelvic ascites noted. Abdomen and pelvis CT on 12/06/2019 with contrast - Shows a large heterogeneous enhancing pelvic mass in the right lower pelvis abutting and distorting the uterus which is heterogeneous. A large adnexal left cystic mass, smaller, 6 cm x 4 x 5, unchanged versus 11/30/2019. Omental caking. Enhancing peritoneal implants prominent in the upper abdomen. No enlarged lymph nodes. IMPRESSION: 74-year-old woman, baseline ECOG performance status 0, with a few medical problems, admitted with bilateral large adnexal masses, peritoneal implants and omental caking highly suspicious for primary peritoneal versus ovarian versus fallopian tube carcinoma, locally advanced. No respiratory symptoms. Status post paracentesis with fluid cytology pending. No CA-125 available at present. PLAN: 1. Chest CT to complete staging 2. Rapid outpatient evaluation at [facility]. I've messaged our center administrator to expedite this. I discussed with Heather the likely diagnosis of gynecologic cancer, likely ovarian, possibly fallopian tube or primary peritoneal. I explained it is advanced, more staging required, but will be very treatable, often with up-front chemotherapy followed by debulking surgery followed by additional chemotherapy. She is otherwise well enough to go home. 2. I cautioned Heather there is high likelihood of recurrence of her abdominal ascites which may again require drainage. She had an opportunity to ask questions. She said she did not have any additional ones. She reports a good support system at home between her son and and will be able to travel [id number] between [place] and [place]. Thank you for this consult. cc: Rocio Luz MD
[2019-12-09] MEDS: HumaLOG INSULIN (NovoLOG) PER UNIT SC SCH ×2 (08:36→12:00)
--- NOTE | 2019-12-09 12:34 | REP ---
Ultrasound-guided paracentesis The procedure was performed by CORDELIA Bertrand, under the direct supervision of Dr. Carmona. The risks and benefits of the procedure were explained to the patient and informed consent was obtained both verbally and written. Directly prior to the start of the procedure, a formal timeout was completed in the procedure room. Under ultrasound guidance, the largest pocket of fluid in the right flank was localized and skin was marked. The skin was then prepped and draped in a sterile fashion. 11 ml of buffered lidocaine was used as a local anesthetic. Using ultrasound guidance, an 8-Malay multi side-hole catheter was inserted using trocar technique. 4,025 mL of yellow colored fluid was withdrawn, 200 ml was set to the lab for further analysis, and the rest was discarded. The patient tolerated the procedure well and there were no immediate complications. After the appropriate monitored convalescence the patient was discharged from the department. Reviewed by CORDELIA Quiroz 12/08/2019 04:05 P Electronically Signed by Doanvon Carmona MD 12/09/2019 12:24 P
--- NOTE | 2019-12-09 12:44 | DS.PDOC ---
Discharge Summary General Date of Admission Dec 06, 2019 at 15:28 Date of Discharge 12/09/19 Specialist/Consultants Involve: Shauna Murphy MD Discharge Summary PROCEDURES PERFORMED DURING STAY: Abdominal paracentesis ADMITTING DIAGNOSES: abdominal pain, suspected intraabdominal malignancy. DISCHARGE DIAGNOSES: 1. suspected ovarian malignancy COMPLICATIONS/CHIEF COMPLAINT: Ovarian Cancer. Hospital Course -74 y/o F with recently diagnosed intraabdominal mass pending further work up including biopsy was admitted from [facility] ER as a transfer to have biopsy of intraabdominal mass; pt also c/o increasing abdominal distension, nausea, vomiting, decreased appetite and oral intake. Patient was found to have Large heterogeneously enhancing pelvic mass suspicious for ovarian origin and highly concerning for ovarian cancer with Peritoneal carcinomatosis with extensive omental caking. Initially patient c/o nausea, decreased oral intake, diarrhea, found to have metabolic acidosis most probably secondary to diarrhea and decreased oral intake. Pt was started on iv antiemetics, ivf and had abdominal paracentesis. Pt was evaluated by oncology service and recommendations were o/p follow up. Over the course of treatment pt's clinical condition improved, nausea, diarrhea resolved. Pt was seen and examined and examined at bedside on day of day of discharge. Pt stated that she is feeling fine but c/o loss of appetite. Pt was clinically and vitally stable at the time of discharge. I spent 35 minutes in coordinating discharge of this patient. DISCHARGE MEDICATIONS: Please see below. ALLERGIES: Please see below. PHYSICAL EXAMINATION ON DISCHARGE: VITAL SIGNS: Please see below. GENERAL: comfortable HEENT: oral mucosa moist NECK: supple CARDIOVASCULAR EXAMINATION: regular rate and rhythm RESPIRATORY EXAMINATION: clear to auscultation ABDOMINAL EXAMINATION: soft, non tender, mild distention EXTREMITIES: mild b/l lower extremities pitting pedal edema NEUROLOGICAL EXAMINATION: no focal deficit PSYCHIATRIC EXAMINATION: mood normal LABORATORY DATA: Please see below. ACTIVITY: [As tolerated]. DISPOSITION: Home DISCHARGE INSTRUCTIONS: f/u with PMD and oncology service as scheduled Vital Signs/I&Os Vital Signs Date Time Temp Pulse Resp B/P (MAP) Pulse Ox O2 Delivery O2 Flow Rate FiO2 12/09/19 08:00 98.2 79 22 117/57 (77) 98 Room Air I&O- Last 24 Hours up to 6 AM 12/09/19 05:59 Intake Total 300 ml Output Total 500 ml Balance -200 ml Laboratory Data Labs 24H Laboratory Tests 2 12/08/19 15:24: Body Fluid Specific Bowie 1.026, Body Fluid WBC (Auto) 1491H, Body Fluid RBC (Auto) 3, Body Fluid Mononuclear Cells % Auto 91.0H, Fluid Polymorphonuclear Cell % Auto 9.0H, Body Fluid Glucose Source PERITONEAL, Body Fluid Glucose 82, Body Fluid Protein Source PERITONEAL, Body Fluid Total Protein 4.3, Body Fluid Albumin Source PERITONEAL, Body Fluid Albumin 1.9, Peritoneal Fluid Source PERITONEAL, Peritoneal Fluid Color YELLOW, Peritoneal Fluid Appearance CLOUDY 12/08/19 17:43: Bedside Glucose (Misc Panel) 94 12/08/19 20:18: Bedside Glucose (Misc Panel) 142H 12/09/19 05:42: Nucleated Red Blood Cells % (auto) 0.0, Anion Gap 12, Glomerular Filtration Rate > 60.0, Calcium Level 8.2L 12/09/19 11:42: Bedside Glucose (Misc Panel) 95 CBC/BMP Laboratory Tests 12/09/19 05:42 FSBS Laboratory Tests Test 12/08/19 17:43 12/08/19 20:18 12/09/19 11:42 Range/Units Bedside Glucose (Misc Panel) 94 142 95 83-110 MG/DL Microbiology Microbiology 12/08/19 Acid Fast Stain, Received Pending 12/08/19 Mycobacterial Culture, Received Pending 12/08/19 Fungal Smear, Received Pending 12/08/19 Fungal Culture, Received Pending 12/08/19 Gram Stain - Final, Resulted 12/08/19 Body Fluid Culture, Resulted Pending 12/08/19 Anaerobic Culture, Resulted Pending 12/07/19 Gastrointestinal Tract Panel (PCR) - Final, Complete 12/07/19 Blood Culture - Preliminary, Resulted No Growth after 48 hours. All Specime... 12/06/19 Blood Culture - Preliminary, Resulted No Growth after 48 hours. All Specime... 12/06/19 Respiratory Virus Panel (PCR) (ARA) - Final, Complete Discharge Medications Scheduled Cholecalciferol (Vitamin D3) (Vitamin D3) 125 Mcg Capsule, 125 MCG PO DAILY, (Reported) Insulin Glargine,Hum.rec.anlog (Lantus Solostar) 100 Unit/1 Ml Insuln.pen, 8 UNITS SC QHS, (Reported) Ondansetron HCl (Zofran) 4 Mg Tablet, 4 MG PO Q6H, (Reported) GIVEN AT [facility] Scheduled PRN Magnesium Hydroxide (Milk of Magnesia) 400 Mg/5 Ml Oral.susp, 30 ML PO Q6HP PRN for CONSTIPATION Oxycodone/Acetaminophen (Oxycodone-Acetaminophen 5-325) 1 Each Tablet, 1 TAB PO Q4HP PRN for MILD/MODERATE PAIN (PS 1-7) Sennosides/Docusate Sodium (Senna Plus Tablet) 1 Each Tablet, 2 TAB PO BIDP PRN for CONSTIPATION Allergies Coded Allergies: No Known Allergies (Unverified , 08/02/16) TAHIR HOGAN MD Dec 09, 2019 12:44
[2019-12-09 12:59] LABS: CA15-3 ANTIGEN 93.6 U/ML (<32.4); CA19-9 TUMOR MARKER,CARBOHYDRA 349.7 U/ML (<35.0)
[2019-12-09 13:30] LABS: CA 125 1315.1 U/ML (<30.2)
== END 2019-12-09 16:09 | disposition home or self-care (01) | DRG 755 ==
LOC: M PCU 15:28
PROVIDERS: ADMIT General Practice; ATTEND Internal Medicine
PROC: 0W9G3ZX Drainage of Peritoneal Cavity, Percutaneous Approach, Diagnostic (ICD-10-PCS; principal; 2019-12-08 13:00)
DX: C56.2 Malignant neoplasm of left ovary (principal); R18.0 Malignant ascites; E87.2 Acidosis; E11.9 Type 2 diabetes mellitus without complications; M19.90 Unspecified osteoarthritis, unspecified site; R63.0 Anorexia; E87.5 Hyperkalemia; Z79.4 Long term (current) use of insulin; Z79.899 Other long term (current) drug therapy; Z11.59 Encounter for screening for other viral diseases

== ENCOUNTER → 2019-12-24 | Outpatient (CLI) | payer MEDICARE, OTHER ==
[~2019-12-24] MED LIST changes: +D 50CAP2 PO; +ISOVUE-300 61% 50ML VIAL As Ordered ONE; +LANTINJ4 SC; +LIDOCAINE 1% MDV 20ML VIAL As Ordered ONE; +MIDAZOLAM INJ 2MG/2ML VIAL (J2250 PER 1MG) As Ordered ONE; +MOM30SS2 PO; +PERCOCET PO; +SENN-52 PO; +ZOFR4TAB16 PO; +ceFAZolin 1GM VIAL (J0690 PER 500MG) As Ordered ONE; +ceFAZolin 2 GM/D5W 50 ML IV BAG (J0690 PER 500MG) As Ordered ONE; +diphenhydrAMINE 50MG/ML VIAL (J1200) As Ordered ONE; +fentaNYL 100 MCG/2 ML INJECTION (J3010) As Ordered ONE
--- NOTE | 2020-01-30 10:11 | POST-OPPD ---
Postoperative Procedure Note Date Of Procedure: Dec 24, 2019 Time Of Procedure: 15:00 Full op note IR Ultrasound and fluoroscopy-guided port placement. IR Ultrasound of the neck. IR Moderate sedation. Clinical information: Ovarian cancer Physician: Dr. Goldne. Procedure: The patient was advised of the benefits, risks, and alternatives of the procedure and informed consent was obtained. A time-out was performed with verification of the patient's name, MRN, site of procedure and type of procedure to be performed. The patient was positioned in the supine position on the angiographic table. The site was prepped and draped in the usual sterile fashion. Moderate sedation was performed by the physician including the presence of an independent trained observer who assisted and monitored the patient's level of consciousness and physiologic status. Following the administration of fentanyl and Versed , the physician spent 45 minutes of continuous face to face time with the patient. Ultrasound of the neck reveals a patent and compressible right internal jugular vein. A plow holder radiograph reveals no gross abnormality. The neck and anterior chest wall were anesthetized with lidocaine. The right internal jugular vein was accessed using a microintroducer needle under ultrasound guidance, via a lateral approach. An 018 wire was advanced into the superior vena cava, the needle was removed and a microsheath was placed. An Amplatz wire was then passed into the inferior vena cava. An incision at the internal jugular vein access site and anterior chest wall were made using a scalpel. An incision was made at the anterior chest wall. A small pocket was created using a combination of blunt and sharp dissection. A tunneling device was then used to pass the catheter from the pocket to the neck puncture site. An 8-F GreenPocket Smart power port was then positioned in the pocket. The catheter was then measured and cut. The introducer sheath was exchanged for a peel-away sheath. The catheter was passed through the peel-away sheath into the internal jugular vein and the peel-away sheath was removed. The port tip was positioned at the cavoatrial junction. The port was then accessed with a Qureshi needle. The port flushes and aspirates well. The puncture site in the neck was closed. The chest wall incision was then closed with 2-0 Vicryl and 4-0 Monocryl. Glue and Steri- Strips were applied. A sterile dressing was then applied. The patient tolerated the procedure well and was returned to the PRU in stable condition. Estimated blood loss: <5 ml. Complications: None. Conclusion: 1. Successful placement of an 8-Ivorian Angio dynamics Smart power port via the right internal jugular vein. The port is ready for immediate use. 2. Patient to follow up in IR clinic in 2 weeks. Thank you for this referral. CORDELIA GOLDEN MD Jan 30, 2020 10:11
== END ==
LOC: M IRPRO 12:51
PROVIDERS: ATTEND Internal Medicine Hematology & Oncology
DX: C56.9 Malignant neoplasm of unspecified ovary (principal)
CPT/HCPCS: 36415; 36561; 80053; 85025; 85610; 85730; 99152; C1769; C1788; C1894; J0690; J1200; J1642; J1644; J2250; J3010; Q9967